=== PATIENT | male | born 1990 | race Caucasian/White ===

== ENCOUNTER 2020-10-15 20:51 | Emergency (ER) | payer OTHER ==
[~2020-10-15] VITALS: Ht 193 cm; Wt 136.1 kg
--- NOTE | ~2020-10-15 | EMS ---
[address] [address] EMS Patient Care Report Name: MANUEL ALEXANDER Room #: DEP ELDER Mantilla#: [id number] Admission: 10/15/20 Attend Phys: Discharge: 10/16/20 Date of : [birth year] Report #: [id number] THIS REPORT FOR: //name// Report Transmitted: 10/16/2020 09:44 EMS Care Summary [place], [place]/[facility] Incident [id number] @ 10/15/2020 20:15 Incident [address] [place] [address] Patient MANUEL ALEXANDER Male, 29 Years 1990 Patient Address [address] [place] [address] Patient History Depression,Post Traumatic Stress Disorder (PTSD),Alcohol Abuse, Chief Complaint ALCOHOL USE Disposition Transported No Lights/[place] Dispatch Reason Traumatic Injury Transported To [facility] Narrative M36 DISPATCHED TO A TRAUMATIC INJURY. M36 AOS AND FOUND A MALE PT WITH PD. PD STATES THAT THE PT HAD A BEHAVIORAL EPISODE AND TORE UP HIS APARTMENT AND BROKE WINDOWS. THE PT HAS NO OBVIOUS INJURIES AND DENIES ANY PAIN. PT STATES THAT HE DOES NOT FEEL SUICIDIAL OR HOMOCIDAL BUT HE HATES HIS LIFE AND HE WANTS HELP. PT ADMITS TO DRINKING A [address] [address] EMS Patient Care Report Name: MANUEL ALEXANDER Room #: DEP [facility]#: [id number] Admission: 10/15/20 Attend Phys: Discharge: 10/16/20 Date of : [birth year] Report #: [id number] LOT OF [place] TODAY. PT DOES HAVE PSYCH HX. PT WAS NOT COMBATIVE AND FOLLOWS COMMANDS. PD RODE WITH. PT WALKED TO THE AMBULANCE. VITALS OBTAINED. BGA OBTAINED. M[address] [place]. EN ROUTE PT REMAINED STABLE. REPORT GIVEN TO FINA LOPEZ. SIGNATURES OBTAINED. TRANSFER OF CARE TOOK PLACE. M36 IN SERVICE. NITHYA TRAN [employer] Initial Vitals @20:36P: 125,R: 18,BP: 115/84,Pain: 0/10,GCS: 15,CO: 1,SpO2: 97,Revised Trauma: 12, @20:39P: 113,R: 18,BP: 238/83,Pain: 0/10,GCS: 15,Glucose: 106,CO: 2,SpO2: 96,Revised Trauma: 12, Assessments @20:25MENTAL:Person Oriented,Time Oriented,Event Oriented,Place Oriented,SKIN:HEENT:Head/Face: No Abnormalities,Neck/Airway: No Abnormalities,LUNG SOUNDS:General: No Abnormalities,ABDOMEN:General: No Abnormalities,PELVIS//GI:No Abnormalities,EXTREMITIES:Capillary Refill: Right Upper: < 2 Sec,Left Arm: No Abnormalities,Right Arm: No Abnormalities,Left Leg: No Abnormalities,Right Leg: No Abnormalities,PULSE:Radial: 2+ Normal,NEURO:Other, Impression Alcohol use Procedures @20:25ALS AssessmentResponse: UnchangedSucceeded Timeline 20:14,Call Received 20:14,Dispatch Notified 20:15,Dispatched 20:15,En Route 20:24,On Scene 20:25,At Patient 20:25,ALS Assessment,Response: UnchangedSucceeded, [facility] [address] [place] [address] EMS Patient Care Report Name: MANUEL ALEXANDER Room #: DEP Jose Rafael#: [id number] Admission: 10/15/20 Attend Phys: Discharge: 10/16/20 Date of : [birth year] Report #: [id number] 20:35,Depart Scene 20:36,BP: 115/84 M,PULSE: 125,RR: 18 R,SPO2: 97 Ox,ETCO2: ,BG: ,PAIN: 0,GCS: 15, 20:39,BP: 238/83 M,PULSE: 113,RR: 18 R,SPO2: 96 Ox,ETCO2: ,B,PAIN: 0,GCS: 15, 20:55,At Destination 21:12,Call Closed Disclaimer v1.1 Copyright 2020 [employer] This EMS Care Summary contains data elements from the applicable legal record (which may be displayed differently). It is designed to provide pertinent information for the following purposes: continuity of care, clinical quality, and state data reporting. The complete legal record is available to ED staff and administrators of the receiving hospital in [employer]'s Patient Tracker. All data is provided "as is."
[2020-10-15 22:03] LABS: ABSOLUTE NEUTROPHILS 6.5 thou/uL (1.4-8.2); BASOPHILS 0.3 % (0.0-2.0); EOSINOPHILS 0.9 % (0.0-3.0); HEMATOCRIT 43.1 % (42.0-52.0); HEMOGLOBIN 14.9 gm/dL (14.0-18.0); LYMPHOCYTES 23.8 % (24.0-44.0); MCH 31.7 pg (26.0-34.0); MCHC 34.6 g/dL (28.0-37.0); MCV 91.6 fL (80.0-100.0); MONOCYTES 5.6 % (1.0-8.0); PLATELET COUNT 228 thou/uL (150-400); POLYS 69.4 % (36.0-66.0); RBC 4.71 mil/uL (4.50-6.00); RDW 12.9 % (10.5-14.5); WBC 9.4 thou/uL (4.0-11.0)
[2020-10-15 22:10] LABS: AMP/METHAMP Negative (Negative); BARBITURATES Negative (Negative); BENZODIAZEPINES Negative (Negative); COCAINE Negative (Negative); METHADONE Negative (Negative); OPIATES Negative (Negative); PCP Negative (Negative)
[2020-10-15 22:13] LABS: ANION GAP 11 mmol/L (7-16); BUN 10 mg/dL (7-18); CALCIUM 8.3 mg/dL (8.5-10.1); CHLORIDE 108 mmol/L (98-107); CO2 25 mmol/L (21-32); GLUCOSE 108 mg/dL (74-106); POTASSIUM 3.6 mmol/L (3.5-5.1); SODIUM 144 mmol/L (136-145)
[2020-10-15 22:19] LABS: ALBUMIN 3.7 g/dL (3.4-5.0); SALICYLATE < 2.8 mg/dL (2.8-20.0); SGOT 41 U/L (15-37); SGPT 61 U/L (16-63); TOTAL BILIRUBIN 0.2 mg/dL (0.2-1.0); TOTAL PROTEIN 7.2 g/dL (6.4-8.2)
[2020-10-15] MEDS ORDERED: PROZAC20 M1 PO (22:40)
[2020-10-15] MEDS ORDERED: ZYPREXA 5 MG TAB5 MG (22:43)
[2020-10-16 05:34] VITALS: BP 140/92
--- NOTE | 2020-10-17 07:33 | EKG ---
[address] [address] ELECTROCARDIOGRAM REPORT Name: CATHERINEMANUEL Room #: DEP ELDER Mantilla#: [id number] Admission: 10/15/20 Attend Phys: Discharge: 10/16/20 Date of : [birth year] Report #: [id number] [facility] ED Test Date: 2020-10-15 Test Time: 21:34:59 Pat Name: MANUEL ALEXANDER Department: Patient ID: [id number]- Room: Gender: M Equipment Mechanic Specialist: unknown : 1990 Requested By: Davin Dolan Order Number: [id number] MD: Kedar Coto Measurements Intervals [place] Rate: 87 P: 25 MD: 166 QRS: 41 QRSD: 94 T: -2 QT: 347 QTc: 418 Interpretive Statements Sinus rhythm Borderline T abnormalities, inferior leads No previous ECG available for comparison Electronically Signed On 10-17-2020 7:33:13 CDT by Kedar Coto [email or web address] <ELECTRONICALLY SIGNED> By: Kedar Coto MD, [facility] 10/17/20 0733 [id number] Kedar Coto MD, FACC /EPI
== END 2020-10-16 05:30 | disposition home or self-care (01) ==
LOC: ER 20:51
PROVIDERS: Physician Assistant
DX: R45.851 Suicidal ideations (principal); Z79.899 Other long term (current) drug therapy; Z20.822 Contact with and (suspected) exposure to COVID-19